=== PATIENT | female | born 1990 | race Two or more races ===

== ENCOUNTER 2020-08-16 15:08 | Inpatient (IN) | payer MEDICAID, OTHER ==
[~2020-08-16] VITALS: Ht 165.1 cm; Wt 133.5 kg
[2020-08-16] MEDS ORDERED: cefTRIAXone 1GM/50ML D5W 50 ML IV ONE (17:30)
[2020-08-16 18:28] LABS: Basophils # (auto) 0.1 10 ^3/uL (0-0.2); Basophils % (auto) 0.9 % (0.0-2.0); Eosinophils # (auto) 0.1 10 ^3/uL (0-0.8); Eosinophils % (auto) 0.8 % (0.0-7.0); Hematocrit 40.8 % (36.0-46.0); Hemoglobin 13.9 g/dL (12.2-16.2); Lymphocytes # (auto) 2.8 10 ^3/uL (0.4-5.4); Lymphocytes % (auto) 28.3 % (10.0-50.0); Mean Corpuscular Hemoglobin 29.1 pg (28.0-32.0); Mean Corpuscular Hgb Conc. 34.1 g/dL (32.0-36.0); Mean Corpuscular Volume 85.5 fL (80.0-100.0); Monocytes # (auto) 0.4 10 ^3/uL (0-1.3); Monocytes % (auto) 4.2 % (0.0-12.0); Neutrophils # (auto) 6.6 10 ^3/uL (1.6-8.6); Neutrophils % (auto) 65.8 % (37.0-80.0); Nucleated Red Blood Cells % 0.6 %; Platelet Count (auto) 318 10^3/uL (140-450); Red Blood Cells 4.77 10^6/uL (4.0-5.20); Red Cell Distribution Width 14.5 % (11.8-14.3)
[2020-08-16 18:41] LABS: Potassium 3.9 mmol/L (3.5-5.1)
[2020-08-16 18:43] LABS: INR 1.03 (0.9-1.15); Partial Thromboplastin Time 29.9 sec (23.0-31.2)
[2020-08-16 18:47] LABS: Albumin 4.1 g/dL (3.4-5.0); BUN/Creatinine Ratio 15.3; Bilirubin, Total 0.6 mg/dL (0.2-1.0); Total Protein 8.2 g/dL (6.4-8.2)
[2020-08-16] MEDS ORDERED: NITROGLYCERIN 0.4 MG SL TAB SL PRN (19:30)
[2020-08-16] MEDS ORDERED: METOCLOPRAMIDE HCL 5MG/ml INJ 2ml VIAL IV PRN (19:30)
[2020-08-16] MEDS ORDERED: ALUM & MAG HYDROX-SIMETH LIQ(MAALOX) 30 ML PO PRN (19:30)
[2020-08-16] MEDS ORDERED: DOCUSATE SOD 100 MG CAP PO PRN (19:30)
[2020-08-16] MEDS ORDERED: ACETAMINOPHEN 325 MG TAB PO PRN (19:30)
[2020-08-16] MEDS ORDERED: MORPHINE SULF INJ 2 MG/ML SYRINGE 1ML IV PRN ×2 (19:30)
[2020-08-16] MEDS: D5W/SOD CHL 0.45% 1,000 ML IV SCH (23:15)
[2020-08-16 23:23] LABS: Urine Bacteria MOD /hpf (None Seen); Urine Blood Negative /uL (Negative); Urine Mucus FEW (None Seen); Urine WBC 12 /hpf (0 - 5)
[2020-08-16 23:30] LABS: Amphetamine Screen, Urine NEGATIVE (NEGATIVE); Barbiturate Scree,Urine NEGATIVE (NEGATIVE); Benzodiazephine Screen, Urine NEGATIVE (NEGATIVE); Cannabinoid Screen, Urine NEGATIVE (NEGATIVE); Cocaine Screen, Urine NEGATIVE (NEGATIVE); Opiate Scree,Urine NEGATIVE (NEGATIVE); Phencyclidine Screen, Urine NEGATIVE (NEGATIVE)
[2020-08-17 09:00] VITALS: BP 106/87
[2020-08-17 09:03] VITALS: BP 106/87
[2020-08-17] MEDS: D5W/SOD CHL 0.45% 1,000 ML IV SCH (10:07)
[2020-08-17 13:00] VITALS: BP_SYST 100; BP_SYST 154; BP_DIAS 55; BP_DIAS 91
[2020-08-17 15:40] LABS: Basophils # (auto) 0.1 10 ^3/uL (0-0.2); Eosinophils # (auto) 0.1 10 ^3/uL (0-0.8); Eosinophils % (auto) 1.2 % (0.0-7.0); Hematocrit 39.3 % (36.0-46.0); Hemoglobin 13.4 g/dL (12.2-16.2); Lymphocytes # (auto) 1.9 10 ^3/uL (0.4-5.4); Mean Corpuscular Hemoglobin 29.4 pg (28.0-32.0); Mean Corpuscular Volume 86.5 fL (80.0-100.0); Monocytes # (auto) 0.4 10 ^3/uL (0-1.3); Neutrophils # (auto) 3.8 10 ^3/uL (1.6-8.6); Neutrophils % (auto) 60.8 % (37.0-80.0); Nucleated Red Blood Cells % 0.1 %; Platelet Count (auto) 267 10^3/uL (140-450); Red Blood Cells 4.55 10^6/uL (4.0-5.20); Red Cell Distribution Width 14.5 % (11.8-14.3); White Blood Cell 6.2 10^3/uL (4.4-10.8)
[2020-08-17 15:54] LABS: INR 1.06 (0.9-1.15); Partial Thromboplastin Time 28.8 sec (23.0-31.2)
[2020-08-17 16:00] LABS: Albumin 3.7 g/dL (3.4-5.0); Calcium 8.7 mg/dL (8.5-10.1); Potassium 4.1 mmol/L (3.5-5.1)
[2020-08-17 16:03] LABS: BUN/Creatinine Ratio 13.3; Bilirubin, Total 0.7 mg/dL (0.2-1.0); Total Protein 7.7 g/dL (6.4-8.2)
[2020-08-17 17:00] VITALS: BP 118/73
[2020-08-17] MEDS: HYDROcodone-ACET 5/325MG TAB PO PRN (20:07)
[2020-08-17 22:00] VITALS: BP 127/88
[2020-08-18 05:00] VITALS: BP 117/72
[2020-08-18] MEDS: D5W/SOD CHL 0.45% 1,000 ML IV SCH (05:30)
[2020-08-18 08:00] VITALS: BP 117/65
[2020-08-18] MEDS ORDERED: ROPIVACAINE 0.5% (5MG/ML) 20ML AMPULE IJ ONE (09:16)
[2020-08-18] MEDS ORDERED: NEOMYCIN-BACITRACIN-POLYM 15GM TOP OINT TOP ONE (09:19)
[2020-08-18] MEDS: BUPIVACAINE 0.5% P/F INJ 10 ML VIAL ONE ×2 (09:25→11:30)
[2020-08-18] MEDS ORDERED: fentaNYL CITRATE 100 MCG/2 ML VL ONE (10:27)
[2020-08-18] MEDS ORDERED: ceFAZolin 1GM/50ML 100 ML IV ONE (10:28)
[2020-08-18] MEDS ORDERED: MIDAZOLAM HCL 1MG/1ML-2 ML VIAL ONE ×3 (10:28→11:03)
[2020-08-18] MEDS ORDERED: PROPOFOL 10 MG/ML 20 ML IV ONE (10:28)
[2020-08-18] MEDS ORDERED: ONDANSETRON HCL 4 MG/2 ML VIAL ONE (10:28)
[2020-08-18] MEDS ORDERED: SODIUM CHLORIDE LOCK 10 ML ONE (10:28)
[2020-08-18] MEDS ORDERED: SODIUM CHLORIDE LOCK 20 ML ONE (11:31)
[2020-08-18 12:00] VITALS: BP 112/70
[2020-08-18] MEDS ORDERED: METOCLOPRAMIDE HCL 5MG/ml INJ 2ml VIAL IV PRN (12:15)
[2020-08-18] MEDS ORDERED: KETOROLAC TROMETH 30 MG/ML 1ML VIAL IV ONE (12:15)
[2020-08-18] MEDS ORDERED: HYDROmorphone HCL 2 MG/ML VL IV PRN (12:15)
[2020-08-18] MEDS ORDERED: MORPHINE SULFATE 4 MG/ML SYR/VIAL IV PRN (12:15)
[2020-08-18] MEDS: HYDROcodone-ACET 5/325MG TAB PO PRN (14:57)
[2020-08-18] MEDS ORDERED: FAMO20TA10 PO (16:57)
[2020-08-18] MEDS ORDERED: ASPI-231 PO (16:57)
[2020-08-18] MEDS ORDERED: IBUP800T26 PO (16:57)
[2020-08-18] MEDS ORDERED: DOXY-332 PO (16:57)
[2020-08-18 17:00] VITALS: BP 130/86
[2020-08-18 17:20] VITALS: BP 112/78
== END 2020-08-18 18:10 | disposition home or self-care (01) | DRG 384 ==
LOC: ER 15:08 → OVERFLOW 15:09 → EAST 08-17 09:13
PROVIDERS: ADMIT Hospitalist; ATTEND Hospitalist
PROC: 0JCQ0ZZ Extirpation of Matter from Right Foot Subcutaneous Tissue and Fascia, Open Approach (ICD-10-PCS; principal; 2020-08-18 10:43)
DX: S90.851A Superficial foreign body, right foot, initial encounter (principal); E66.01 Morbid (severe) obesity due to excess calories; Z68.42 Body mass index [BMI] 45.0-49.9, adult; W45.8XXA Other foreign body or object entering through skin, initial encounter; Y93.01 Activity, walking, marching and hiking; Y92.9 Unspecified place or not applicable; Y99.9 Unspecified external cause status; Z20.822 Contact with and (suspected) exposure to COVID-19
CPT/HCPCS: 36415; 71045; 73620; 80053; 80307; 81001; 84702; 85025; 85610; 85730; 86850; 86900; 86901; 87086; 87426; 97163; G0378; J0690; J0696; J2250; J2405; J2704; J3490

== ENCOUNTER 2020-08-26 13:53 | Emergency (ER) | payer MEDICAID ==
[~2020-08-26] VITALS: Ht 162.6 cm; Wt 127.0 kg
[~2020-08-26 13:53] MED LIST: ASPI-231 PO; DOXY-332 PO; FAMO20TA10 PO; IBUP800T26 PO
[2020-08-26 13:55] VITALS: BP 147/81
== END 2020-08-26 15:28 | disposition home or self-care (01) ==
LOC: ER 13:53
DX: M79.671 Pain in right foot (principal); Z48.01 Encounter for change or removal of surgical wound dressing

== ENCOUNTER 2021-03-30 07:18 | Emergency (ER) | payer MEDICAID ==
[~2021-03-30] VITALS: Ht 162.6 cm; Wt 129.7 kg
[2021-03-30 08:23] VITALS: BP 130/82
[2021-03-30 08:44] LABS: Urine Bacteria NONE SEEN /hpf (None Seen); Urine Blood Negative /uL (Negative); Urine Mucus FEW (None Seen); Urine Specific Gravity 1.015 (1.001-1.035); Urine WBC 2 /hpf (0 - 5)
[2021-03-30] MEDS ORDERED: SODIUM CHLORIDE 0.9% 1,000 ML IV ONE (08:45)
[2021-03-30] MEDS ORDERED: KETOROLAC TROMETH 30 MG/ML 1ML VIAL IV ONE (08:45)
[2021-03-30] MEDS ORDERED: ONDANSETRON HCL 4 MG/2 ML VIAL IV ONE (08:45)
[2021-03-30 09:02] LABS: Basophils # (auto) 0.1 10 ^3/uL (0-0.2); Basophils % (auto) 1.5 % (0.0-2.0); Eosinophils # (auto) 0.1 10 ^3/uL (0-0.8); Eosinophils % (auto) 1.5 % (0.0-7.0); Hematocrit 41.4 % (36.0-46.0); Hemoglobin 13.9 g/dL (12.2-16.2); Lymphocytes # (auto) 1.9 10 ^3/uL (0.4-5.4); Lymphocytes % (auto) 31.7 % (10.0-50.0); Mean Corpuscular Hemoglobin 29.3 pg (28.0-32.0); Mean Corpuscular Hgb Conc. 33.5 g/dL (32.0-36.0); Mean Corpuscular Volume 87.5 fL (80.0-100.0); Monocytes # (auto) 0.3 10 ^3/uL (0-1.3); Monocytes % (auto) 5.7 % (0.0-12.0); Neutrophils # (auto) 3.5 10 ^3/uL (1.6-8.6); Neutrophils % (auto) 59.6 % (37.0-80.0); Nucleated Red Blood Cells % 0.1 %; Red Blood Cells 4.73 10^6/uL (4.0-5.20); Red Cell Distribution Width 14.2 % (11.8-14.3); White Blood Cell 5.8 10^3/uL (4.4-10.8)
[2021-03-30 09:13] LABS: Albumin 3.8 g/dL (3.4-5.0); Calcium 9.1 mg/dL (8.5-10.1); Potassium 3.9 mmol/L (3.5-5.1)
[2021-03-30 09:18] LABS: BUN/Creatinine Ratio 13.8; Bilirubin, Total 0.5 mg/dL (0.2-1.0); Total Protein 7.2 g/dL (6.4-8.2)
== END 2021-03-30 10:17 | disposition home or self-care (01) ==
LOC: ER 07:18
DX: N20.0 Calculus of kidney (principal); K57.30 Diverticulosis of large intestine without perforation or abscess without bleeding
CPT/HCPCS: 36415; 74176; 80053; 81001; 83690; 85025; 96361; 96374; 96375; 99284; J1885; J2405; J7030

== ENCOUNTER 2021-04-02 22:46 | Emergency (ER) | payer MEDICAID ==
[~2021-04-02] VITALS: Ht 165.1 cm; Wt 129.7 kg
[~2021-04-02 22:46] MED LIST changes: -ASPI-231 PO; +ASPI1TAB20 PO
[2021-04-03 02:41] VITALS: BP 126/81
[2021-04-03] MEDS ORDERED: methylPREDNISolone SOD SUCC 125 MG/2 ML VL IM ONE (04:00)
[2021-04-03] MEDS ORDERED: KETOROLAC TROMETH 60MG/2ML VIAL IM ONE (04:00)
== END 2021-04-03 04:24 | disposition home or self-care (01) ==
LOC: ER 22:47
DX: N20.0 Calculus of kidney (principal); R11.0 Nausea; E66.01 Morbid (severe) obesity due to excess calories; Z68.42 Body mass index [BMI] 45.0-49.9, adult; Z79.82 Long term (current) use of aspirin; Z79.2 Long term (current) use of antibiotics; Z79.899 Other long term (current) drug therapy
CPT/HCPCS: 96372; 99284; J1885; J2930

== ENCOUNTER 2021-06-19 20:00 | Emergency (ER) | payer MEDICAID ==
[~2021-06-19] VITALS: Ht 162.6 cm; Wt 127.9 kg
[2021-06-19 21:37] LABS: Basophils # (auto) 0.1 10 ^3/uL (0-0.2); Basophils % (auto) 1.7 % (0.0-2.0); Eosinophils # (auto) 0.1 10 ^3/uL (0-0.8); Eosinophils % (auto) 1.3 % (0.0-7.0); Hematocrit 39.8 % (36.0-46.0); Hemoglobin 13.6 g/dL (12.2-16.2); Lymphocytes % (auto) 37.8 % (10.0-50.0); Mean Corpuscular Hemoglobin 29.1 pg (28.0-32.0); Mean Corpuscular Hgb Conc. 34.3 g/dL (32.0-36.0); Mean Corpuscular Volume 84.9 fL (80.0-100.0); Monocytes # (auto) 0.4 10 ^3/uL (0-1.3); Monocytes % (auto) 4.8 % (0.0-12.0); Neutrophils # (auto) 4.4 10 ^3/uL (1.6-8.6); Neutrophils % (auto) 54.4 % (37.0-80.0); Nucleated Red Blood Cells % 0.2 %; Red Blood Cells 4.68 10^6/uL (4.0-5.20); Red Cell Distribution Width 13.5 % (11.8-14.3); White Blood Cell 8.1 10^3/uL (4.4-10.8)
[2021-06-19 21:54] LABS: Albumin 3.9 g/dL (3.4-5.0); Calcium 8.8 mg/dL (8.5-10.1); Potassium 3.7 mmol/L (3.5-5.1)
[2021-06-19 21:57] LABS: BUN/Creatinine Ratio 12.5; Bilirubin, Total 0.5 mg/dL (0.2-1.0); Total Protein 7.6 g/dL (6.4-8.2)
[2021-06-19 22:52] LABS: Urine Bacteria FEW /hpf (None Seen); Urine Blood 3+ /uL (Negative); Urine Mucus FEW (None Seen); Urine Specific Gravity 1.015 (1.001-1.035); Urine WBC 9 /hpf (0 - 5)
[2021-06-20] MEDS ORDERED: MORPHINE SULFATE 4 MG/ML SYR/VIAL IV ONE (01:15)
[2021-06-20] MEDS ORDERED: HYDROcodone-ACET 5/325MG TAB PO ONE (02:30)
[2021-06-20 03:37] VITALS: BP 132/85
== END 2021-06-20 03:49 | disposition home or self-care (01) ==
LOC: ER 20:01
DX: R10.31 Right lower quadrant pain (principal); R11.2 Nausea with vomiting, unspecified; Z98.890 Other specified postprocedural states; Z79.899 Other long term (current) drug therapy; Z79.82 Long term (current) use of aspirin
CPT/HCPCS: 36415; 74176; 76830; 76856; 80053; 81001; 81025; 83605; 83690; 85025

== ENCOUNTER 2021-12-10 08:39 | Emergency (ER) | payer MEDICAID ==
[~2021-12-10] VITALS: Ht 162.6 cm; Wt 129.3 kg
[2021-12-10 08:39] VITALS: BP 139/87
[2021-12-10 09:22] LABS: Urine Bacteria NONE SEEN /hpf (None Seen); Urine Blood Negative /uL (Negative); Urine Specific Gravity 1.016 (1.001-1.035); Urine WBC 21 /hpf (0 - 5)
[2021-12-10 11:33] LABS: Basophils # (auto) 0.1 10 ^3/uL (0-0.2); Basophils % (auto) 1.3 % (0.0-2.0); Eosinophils # (auto) 0.1 10 ^3/uL (0-0.8); Eosinophils % (auto) 1.3 % (0.0-7.0); Hematocrit 38.7 % (36.0-46.0); Hemoglobin 13.4 g/dL (12.2-16.2); Lymphocytes % (auto) 28.3 % (10.0-50.0); Mean Corpuscular Hemoglobin 29.3 pg (28.0-32.0); Mean Corpuscular Hgb Conc. 34.7 g/dL (32.0-36.0); Mean Corpuscular Volume 84.4 fL (80.0-100.0); Monocytes # (auto) 0.3 10 ^3/uL (0-1.3); Monocytes % (auto) 4.5 % (0.0-12.0); Neutrophils # (auto) 4.6 10 ^3/uL (1.6-8.6); Neutrophils % (auto) 64.6 % (37.0-80.0); Nucleated Red Blood Cells % 0.5 %; Red Blood Cells 4.58 10^6/uL (4.0-5.20); Red Cell Distribution Width 14.3 % (11.8-14.3); White Blood Cell 7.1 10^3/uL (4.4-10.8)
[2021-12-10 11:44] LABS: INR 1.05 (0.9-1.15); Partial Thromboplastin Time 29.2 sec (23.6-33.0)
[2021-12-10] MEDS ORDERED: HALOPERIDOL LACTATE 5 MG/ML INJ VIAL IV PRN (13:15)
[2021-12-10 13:17] LABS: Albumin 3.7 g/dL (3.4-5.0); Calcium 8.8 mg/dL (8.5-10.1); Potassium 3.8 mmol/L (3.5-5.1)
[2021-12-10 13:20] LABS: Bilirubin, Total 0.6 mg/dL (0.2-1.0); Total Protein 7.8 g/dL (6.4-8.2)
[2021-12-10] MEDS ORDERED: IOHEXOL 300 MG/ML 100ML BOTTLE IJ ONE (14:30)
[2021-12-10] MEDS ORDERED: cefTRIAXone 1GM/50ML D5W 50 ML IV ONE (16:30)
[2021-12-10] MEDS ORDERED: ACET-1156 PO (16:50)
[2021-12-10] MEDS ORDERED: CEPH-509 PO (16:50)
== END 2021-12-10 17:16 | disposition home or self-care (01) ==
LOC: ER 08:39
DX: N39.0 Urinary tract infection, site not specified (principal); Z79.82 Long term (current) use of aspirin; Z79.899 Other long term (current) drug therapy
CPT/HCPCS: 36415; 74177; 80053; 81001; 81025; 83605; 84702; 85025; 85610; 85730; 87086; 96365; 99285; J0696; Q9967

== ENCOUNTER 2022-03-07 08:16 | Emergency (ER) | payer MEDICAID ==
[~2022-03-07] VITALS: Ht 162.6 cm; Wt 128.8 kg
[~2022-03-07 08:16] MED LIST changes: +ACET-1156 PO; +CEPH-509 PO
[2022-03-07] MEDS ORDERED: IBUP800T27 PO (11:22)
[2022-03-07] MEDS ORDERED: CEPH-510 PO (11:22)
[2022-03-07 11:31] VITALS: BP 151/99
== END 2022-03-07 11:39 | disposition home or self-care (01) ==
LOC: ER 08:16
DX: N76.4 Abscess of vulva (principal); Z79.1 Long term (current) use of non-steroidal anti-inflammatories (NSAID); Z79.82 Long term (current) use of aspirin; Z79.2 Long term (current) use of antibiotics; Z79.899 Other long term (current) drug therapy

== ENCOUNTER 2022-03-08 08:37 | Emergency (ER) | payer MEDICAID ==
[~2022-03-08] VITALS: Ht 165.1 cm; Wt 90.7 kg
[~2022-03-08 08:37] MED LIST changes: +CEPH-510 PO; +IBUP800T27 PO
[2022-03-08 09:51] VITALS: BP 115/76
[2022-03-08] MEDS ORDERED: LIDOCAINE 1% HCL (LOCAL ANESTH.) INJ 20ML MDV IJ ONE (10:00)
== END 2022-03-08 10:19 | disposition home or self-care (01) ==
LOC: ER 08:37
DX: N76.0 Acute vaginitis (principal)
CPT/HCPCS: 56420; 99284; J2001

== ENCOUNTER 2022-07-09 13:44 | Inpatient (IN) | payer MEDICAID ==
[~2022-07-09] VITALS: Ht 162.6 cm; Wt 126.0 kg
[2022-07-09 13:55] VITALS: BP 128/82
[2022-07-09 14:18] LABS: Basophils # (auto) 0.1 10 ^3/uL (0-0.2); Basophils % (auto) 0.8 % (0.0-2.0); Eosinophils # (auto) 0 10 ^3/uL (0-0.8); Eosinophils % (auto) 0.2 % (0.0-7.0); Hematocrit 40.9 % (36.0-46.0); Hemoglobin 13.8 g/dL (12.2-16.2); Lymphocytes # (auto) 0.9 10 ^3/uL (0.4-5.4); Lymphocytes % (auto) 7.6 % (10.0-50.0); Mean Corpuscular Hemoglobin 28.7 pg (28.0-32.0); Mean Corpuscular Hgb Conc. 33.9 g/dL (32.0-36.0); Mean Corpuscular Volume 84.9 fL (80.0-100.0); Monocytes # (auto) 0.4 10 ^3/uL (0-1.3); Monocytes % (auto) 3.5 % (0.0-12.0); Neutrophils # (auto) 10.5 10 ^3/uL (1.6-8.6); Neutrophils % (auto) 87.9 % (37.0-80.0); Nucleated Red Blood Cells % 0.1 %; Red Blood Cells 4.81 10^6/uL (4.0-5.20); Red Cell Distribution Width 14.3 % (11.8-14.3)
[2022-07-09 14:26] LABS: Albumin 4.2 g/dL (3.4-5.0); Calcium 8.9 mg/dL (8.5-10.1); Potassium 3.8 mmol/L (3.5-5.1)
[2022-07-09 14:29] LABS: BUN/Creatinine Ratio 10.6; Bilirubin, Total 0.8 mg/dL (0.2-1.0); Total Protein 7.6 g/dL (6.4-8.2)
[2022-07-09] MEDS ORDERED: SODIUM CHLORIDE 0.9% 1,000 ML IV ONE (15:30)
[2022-07-09] MEDS ORDERED: ACETAMINOPHEN 325 MG TAB PO ONE (15:30)
[2022-07-09] MEDS ORDERED: LIDOCAINE VISCOUS 2% 15ML UD PO ONE (16:45)
[2022-07-09] MEDS ORDERED: ONDANSETRON HCL 4 MG/2 ML VIAL IV ONE (16:45)
[2022-07-09] MEDS ORDERED: FAMOTIDINE (10MG/ML) 2ML VL IV ONE (16:45)
[2022-07-09] MEDS ORDERED: MAALOX PLUS or MAALOX 30 ML PO ONE (16:45)
[2022-07-09 17:29] LABS: Urine Bacteria FEW /hpf (None Seen); Urine Blood Negative /uL (Negative); Urine Mucus FEW (None Seen); Urine Specific Gravity 1.021 (1.001-1.035); Urine WBC 9 /hpf (0 - 5)
[2022-07-09] MEDS ORDERED: cefTRIAXone 1GM/50ML D5W 50 ML IV ONE (18:00)
[2022-07-09] MEDS ORDERED: metroNIDAZOLE 500MG/100ML 100 ML IV ONE (18:00)
[2022-07-09] MEDS ORDERED: ACETAMINOPHEN 325 MG TAB PO PRN (18:30)
[2022-07-09] MEDS ORDERED: SODIUM CHLORIDE 0.9% 1,000 ML IV SCH (18:30)
[2022-07-09] MEDS ORDERED: TEMAZEPAM 15 MG CAP PO PRN (18:30)
[2022-07-09] MEDS ORDERED: LORazepam 0.5 MG TAB PO PRN (18:30)
[2022-07-09] MEDS ORDERED: MAALOX PLUS or MAALOX 30 ML PO PRN (18:30)
[2022-07-09] MEDS ORDERED: HYDROmorphone HCL 2 MG/ML VL/or syr IV PRN (18:30)
[2022-07-09] MEDS ORDERED: MORPHINE SULFATE INJ 2 MG/ml SYRG IV PRN ×2 (18:30)
[2022-07-09] MEDS ORDERED: NITROGLYCERIN 0.4 MG SL TAB SL PRN (18:30)
[2022-07-09] MEDS ORDERED: ONDANSETRON HCL 4 MG/2 ML VIAL IV PRN (18:30)
[2022-07-09] MEDS ORDERED: DOCUSATE SOD 100 MG CAP PO PRN (18:30)
[2022-07-09] MEDS ORDERED: HYDROcodone-ACET 5/325MG TAB PO PRN (18:30)
[2022-07-10] MEDS ORDERED: cefTRIAXone 1GM/50ML D5W 50 ML IV SCH (10:00)
[2022-07-10] MEDS ORDERED: PANTOPRAZOLE 40 MG TAB PO SCH (10:00)
[2022-07-10] MEDS ORDERED: metroNIDAZOLE 500MG/100ML 100 ML IV SCH (18:57)
== END 2022-07-09 21:37 | disposition left against medical advice (07) | DRG 463 ==
LOC: ER 13:44 → OVERFLOW 18:48
PROVIDERS: ADMIT Hospitalist; ATTEND Hospitalist
DX: N39.0 Urinary tract infection, site not specified (principal); E66.01 Morbid (severe) obesity due to excess calories; R11.2 Nausea with vomiting, unspecified; Z98.891 History of uterine scar from previous surgery; Z53.29 Procedure and treatment not carried out because of patient's decision for other reasons; Z68.42 Body mass index [BMI] 45.0-49.9, adult
CPT/HCPCS: 36415; 71045; 76705; 80053; 81001; 81025; 83690; 83735; 83880; 84484; 84702; 85025; 85379; 93005; 96361; 96374; 96375; G0378; J2405; J3490

== ENCOUNTER 2024-06-24 17:23 | Emergency (ER) | payer MEDICAID ==
[~2024-06-24] VITALS: Ht 165.1 cm; Wt 135.0 kg
[~2024-06-24 17:23] MED LIST changes: -ACET-1156 PO; +ACET-1881 PO; -DOXY-332 PO; +DOXY100C79 PO; +IBUP-1455 PO; +IBUP-1456 PO; -IBUP800T26 PO; -IBUP800T27 PO
[2024-06-24 17:50] LABS: Basophils # (auto) 0.1 10 ^3/uL (0-0.2); Basophils % (auto) 1.1 % (0.0-2.0); Eosinophils # (auto) 0.1 10 ^3/uL (0-0.8); Eosinophils % (auto) 1.2 % (0.0-7.0); Hematocrit 43.7 % (36.0-46.0); Hemoglobin 14.7 g/dL (12.2-16.2); Lymphocytes # (auto) 3.7 10 ^3/uL (0.4-5.4); Mean Corpuscular Hemoglobin 29.5 pg (28.0-32.0); Mean Corpuscular Hgb Conc. 33.6 g/dL (32.0-36.0); Mean Corpuscular Volume 87.8 fL (80.0-100.0); Monocytes # (auto) 0.5 10 ^3/uL (0-1.3); Monocytes % (auto) 4.6 % (0.0-12.0); Neutrophils # (auto) 5.6 10 ^3/uL (1.6-8.6); Neutrophils % (auto) 56.1 % (37.0-80.0); Nucleated Red Blood Cells % 0.2 %; Platelet Count (auto) 324 10^3/uL (140-450); Red Blood Cells 4.98 10^6/uL (4.0-5.20); Red Cell Distribution Width 14.6 % (11.8-14.3); White Blood Cell 9.9 10^3/uL (4.4-10.8)
--- NOTE | 2024-06-24 17:57 | ED.PDOC ---
HPI Comments 33y F who presents to the ED for chief complaint of chest pain. Pt states she has been having chest pain for the past 30 minutes. Pt states she has been having sternal chest pain while walking. non-radiating, with associated exacerbating of pain with movement and palpation. no injuries of lifting. Pt otherwise denies shortness of breath, diaphoresis, palliations, fever, cough, chills, headache, or dizziness. Pt otherwise has noted temp of 165/94 with 02 sat of 100 % on room air. Pt otherwise denies any other symptoms at this time. Chief Complaint: Chest Pain Time Seen by MD: 17:48 Primary Care Provider: [facility] Notes: Nurses Notes Allergies: Coded Allergies: No Known Drug Allergy (Verified Allergy, Unknown, 08/16/20) Home Meds Active Scripts Ibuprofen (Ibuprofen) 800 Mg Tab, 1 TAB PO TID, #30 TAB Prov:ELKE RODRIGUEZ 03/07/22 Cephalexin ( Keflex 500) 500 Mg Cap, 1 CAP PO QID, #40 CAP Prov:ELKE RODRIGUEZ 03/07/22 Cephalexin (KEFLEX 500) 500 Mg Cap, 1 CAP PO BID for 7 Days, #14 CAP Prov:ANIL VARELA MD 12/10/21 Acetaminophen (Acetaminophen) 325 Mg Tab, 650 MG PO Q6H PRN for 5 Days, #30 TAB 0 Refills Prov:ANIL VARELA MD 12/10/21 Doxycycline (Monohydrate) (Doxycycline) 100 Mg Cap, 100 MG PO BID, #10 CAP Prov:YANCY FAYE MD 08/18/20 Aspirin (Aspir-81) 81 Mg Tab, 1 TAB PO DAILY, #14 TAB Prov:YANCY FAYE MD 08/18/20 Famotidine (PEPCID TABLET) 20 Mg Tb, 1 TAB PO DAILY, #20 TAB Prov:YANCY FAYE MD 08/18/20 Ibuprofen Micronized (Ibuprofen) 800 Mg Tab, 800 MG PO TIDWM PRN, #20 TAB Prov:YANCY FAYE MD 08/18/20 Information Source: Patient Mode of Arrival: Ambulatory Brought in by: self Past Medical History PAST MEDICAL HISTORY: Denies 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 DRYWALL TAPER HELPER History Family History Family History: Reviewed,noncontributory to illness Social History Smoker: Non-Smoker Alcohol: Occasionally Drugs: Marijuana Lives In: Home Constitutional: denies: chills, diaphoresis, fatigue, fever, malaise, sweats, weakness, others EENTM: denies: blurred vision, double vision, ear bleeding, ear discharge, ear drainage, ear pain, ear ringing, eye pain, eye redness, hearing loss, mouth pain, mouth swelling, nasal discharge, nose bleeding, nose congestion, nose pain, photophobia, tearing, throat pain, throat swelling, voice changes, others Respiratory: denies: cough, hemoptysis, orthopnea, SOB at rest, shortness of breath, SOB with excertion, stridor, wheezing, others Cardiovascular: reports: chest pain; denies: dizzy spells, diaphoresis, Dyspnea on exertion, edema, irregular heart beat, left arm pain, lightheadedness, palpitations, PND, syncope, others Gastrointestinal: denies: abdomen distended, abdominal pain, blood streaked bowels, constipated, diarrhea, dysphagia, difficulty swallowing, hematemesis, melena, nausea, poor appetite, poor fluid intake, rectal bleeding, rectal pain, vomiting, others Genitourinary: denies: abnormal vagina bleeding, burning, dyspareunia, dysuria, flank pain, frequency, hematuria, incontinence, pain, , vagina dis charge, urgency, others Neurological: denies: dizziness, fainting, headache, left sided numbness, left sided weakness, numbness, paresthesia, pre-existing deficit, right sided numbness, right sided weakness, seizure, speech problems, tingling, tremors, weakness, others Musculoskeletal: denies: back pain, gout, joint pain, joint swelling, muscle pain, muscle stiffness, neck pain, others Integumetry: denies: bruises, change in color, change in hair/nails, dryness, laceration, lesions, lumps, rash, wounds, others Allergic/Immunocompromised: denies: Difficulty Healing, Frequent Infections, Hives, Itching, others Hematologic/Lymphatic: denies: anemia, blood clots, easy bleeding, easy bruising, swollen glands, others Endocrine: denies: excessive hunger, excessive sweating, excessive thirst, excessive urination, flushing, intolerance to cold, intolerance to heat, unexplained weight gain, unexplained weight loss, others Psychiatric: denies: anxiety, bipolar disorder, depression, hopeless, panic disorder, schizophrenia, sleepless, suicidal, others All Other Systems: Reviewed and Negative Physical Exam General Appearance: No Apparent Distress, Normal HEENT: Normal ENT Inspection, Pharynx Normal, TMs Normal Neck: Full Range of Motion, Non-Tender, Normal, Normal Inspection Respiratory: Chest Non-Tender, Lungs Clear, No Accessory Muscle Use, No Respiratory Distress, Normal Breath Sounds Cardiovascular: Other (midsternal chest pain) Breast Exam: Deferred Gastrointestinal: No Organomegaly, Non Tender, No Pulsatile Mass, Normal Bowel Sounds, Soft Genitalia: Deferred Pelvic: Deferred Rectal: Deferred Extremities: No calf tenderness, Normal capillary refill, Normal inspection, Normal range of motion, Non-tender, No pedal edema Musculoskeletal : Apperance: Normal Neurologic: Alert, lehr loader II-XII nml as Tested, No Motor Deficits, Normal Affect, Normal Mood, No Sensory Deficits Cerebellar Function: Normal Reflexes: Normal Skin: Dry, Normal Color, Warm Lymphatic: No Adenopathy Was a procedure done? Was a procedure done?: No CP Differential Dx Differential Diagnosis: A-fib, A-Flutter, Angina Differential Diagnosis: Chest Wall Pain, Costochondritis X-Ray, Labs, Meds, VS Vital Signs Date Time Temp Pulse Resp B/P (MAP) Pulse Ox O2 Delivery O2 Flow Rate FiO2 06/24/24 18:31 18 100 Room Air* 0 21 06/24/24 18:21 94 06/24/24 18:06 106 06/24/24 18:06 106 18 125/72 (89) 98 06/24/24 17:43 105 06/24/24 17:39 98.1 97 18 165/94 (117) 100 Lab Test 06/24/24 17:35 Range/Units White Blood Count 9.9 4.4-10.8 10^3/uL Red Blood Count 4.98 4.0-5.20 10^6/uL Hemoglobin 14.7 12.2-16.2 g/dL Hematocrit 43.7 36.0-46.0 % Mean Corpuscular Volume 87.8 80.0-100.0 fL Mean Corpuscular Hemoglobin 29.5 28.0-32.0 pg Mean Corpuscular Hemoglobin Concent 33.6 32.0-36.0 g/dL Red Cell Distribution Width 14.6 H 11.8-14.3 % Platelet Count 324 140-450 10^3/uL Mean Platelet Volume 8.5 6.9-10.8 fL Neutrophils (%) (Auto) 56.1 37.0-80.0 % Lymphocytes (%) (Auto) 37.0 10.0-50.0 % Monocytes (%) (Auto) 4.6 0.0-12.0 % Eosinophils (%) (Auto) 1.2 0.0-7.0 % Basophils (%) (Auto) 1.1 0.0-2.0 % Neutrophils # (Auto) 5.6 1.6-8.6 10 ^3/uL Lymphocytes # (Auto) 3.7 0.4-5.4 10 ^3/uL Monocytes # (Auto) 0.5 0-1.3 10 ^3/uL Eosinophils # (Auto) 0.1 0-0.8 10 ^3/uL Basophils # (Auto) 0.1 0-0.2 10 ^3/uL Nucleated Red Blood Cells 0.2 % Sodium Level 140 136-145 mmol/L Potassium Level 4.2 3.5-5.1 mmol/L Chloride Level 105 98-107 mmol/L Carbon Dioxide Level 26 20-31 mmol/L Anion Gap 9 5-15 Blood Urea Nitrogen 10 9-23 mg/dL Creatinine 0.84 0.550-1.02 mg/dL Glomerular Filtration Rate Calc 95 >90 mL/min BUN/Creatinine Ratio 11.9 10.0-20.0 Serum Glucose 96 74-106 mg/dL Calcium Level 10.2 8.7-10.4 mg/dL Total Bilirubin 0.6 0.2-1.0 mg/dL Aspartate Amino Transferase (AST) 21 13-40 U/L Alanine Aminotransferase (ALT) 23 7-40 U/L Alkaline Phosphatase 65 46-116 U/L Troponin I High Sensitivity < 3 L </=34 ng/L Total Protein 7.7 5.7-8.2 g/dL Albumin 4.7 3.2-4.8 g/dL Beta HCG, Quantitative 1.4 L 1.5-4.2 mIU/mL Current Medications Medications (Trade) Dose Ordered Sig/Zaynab Route Start Time Stop Time Status Last Admin Ketorolac Tromethamine (Toradol Injection) 30 mg ONCE ONCE IM 06/24/24 17:45 06/24/24 17:46 DC 06/24/24 18:[address] [address] Ph: [phone] DIAGNOSTIC IMAGING Diagnostic Imaging Report : [id number] Signed PATIENT: KAVITA GUNTER ACCT: [id number] UNIT: [id number] : 1990 LOC: ER ROOM / BED: / AGE / SEX: 33 / F ADM STATUS: REG ER SERVICE [id number] ORDERING PHYSICIAN: ALLI MOLINA MD PROCEDURE(s): CXRP - CHEST PORTABLE REASON: cp ORDER NUMBER(s): [id number], ACCESSION NUMBER(s): [id number] CHEST RADIOGRAPH Indication: cp Technique: Single frontal view of the chest was obtained Comparison: CHEST PORTABLE on DOS: 07/09/22, CXRP on DOS: 07/09/22 FINDINGS: Lines and Tubes: None Lungs: No focal consolidation. Pleura: No effusion. No pneumothorax. Cardiomediastinal contours: Unremarkable Bones: No acute osseous abnormality. IMPRESSION: No acute cardiopulmonary disease. ATED BY: VALENCIA YOUSIF DO DICTATED DATE/TIME: 06/24/241952 SIGNED BY: VALENCIA YOUSIF DO SIGNED DATE/TIME: 06/24/241952 CC: Time of 1ST Reevaluation: 18:20 Reevaluation 1ST: Unchanged Time of 2ND Reevaluation: 21:23 Reevaluation 2ND: Resolved Patient Education/Counseling: Diagnosis, Treatment Family Education/Counseling: No Family Present Additional Information - I reviewed the following notes from patient's past medical encounters: - The following tests were ordered, and results were reviewed by me: (Labs, X- Ray, EKG): chest x-ray, EKG x3, troponin x1, beta HCG, CBC, CMP, - Additional information was gathered from interviewing the following independent Historian: (Family, Other Providers, EMT): father - I reviewed and agreed with the following test results read by other provider: (X-ray, CT, US): radiologist - I discussed treatments and results with medical personnel and: (consultants, family): none Departure 1 Departure Time of Disposition: 22:09 (Patient presented with chest pain that was concerning for possible STEMI, ACS, PE, Pneumonia, Muscle Strain, COPD, Dissection. Data: 1. I ordered and reviewed the result of at least 3 labs including a CBC, BMP, and Troponin. 2. I independently interpreted the following tests: EKG which shows normal sinus rhythm and Chest X-ray which shows a benign chest.Risk:This patient presented with a high risk of morbidity due to further diagnostic testing or treatment and may suffer from an acute cardiac or respiratory disorder. After review of all the data patient is unlikely to have a pe , dissection, and is low risk for acs. Patient is stable at this time.Workup so far is benign and patient will be discharged with outpatient followup. ) Impression: Primary Impression: Acute chest pain Disposition: HOME / SELF CARE / HOMELESS Condition: Stable Additional Instructions: You presented today with chest pain. Your workup today was benign including labs, troponin, EKG, chest x-ray. Your pain may be from musculoskeletal strain, acid reflux, anxiety, or many other factors. It is important to follow up with your regular doctor within 1 week. If your symptoms worsen or you have any other concerns please return to the emergency room. Discharged With: Self Critical Care Note Critical Care Time?: No Stability Stability form required: No Heart Score Heart Score: Heart Score Response (Comments) Value History Slightly Suspicious 0 EKG Normal 0 Age <45 0 Risk Factors No known risk factors 0 Troponin Normal limit 0 Total 0 I personally scribed for ALLI MOLINA MD ([email or web address]) on 06/24/24 at 17:57. Electronically submitted by Rigoberto Andrews ([email or web address]). I personally scribed for ALLI MOLINA MD ([email or web address]) on 06/24/24 at 20:18. Electronically submitted by Rigoberto Andrews ([email or web address]). ALLI MOLINA MD Jun 24, 2024 17:57 WILLOW MONTEIRO MD Jun 24, 2024 22:10
[2024-06-24] MEDS: KETOROLAC TROMETH 30 MG/ML 1ML VIAL IM ONE (18:05)
[2024-06-24 18:06] VITALS: BP 125/72
[2024-06-24 18:14] LABS: Alanine Aminotransferase 23 U/L (7-40); Albumin 4.7 g/dL (3.2-4.8); Alkaline Phosphatase 65 U/L (46-116); Anion Gap 9 (5-15); Aspartate Aminotransferase 21 U/L (13-40); BUN/Creatinine Ratio 11.9 (10.0-20.0); Blood Urea Nitrogen 10 mg/dL (9-23); Calcium 10.2 mg/dL (8.7-10.4); Carbon Dioxide 26 mmol/L (20-31); Chloride 105 mmol/L (98-107); Glucose 96 mg/dL (74-106); Potassium 4.2 mmol/L (3.5-5.1); Sodium 140 mmol/L (136-145)
[2024-06-24 18:15] LABS: Bilirubin, Total 0.6 mg/dL (0.2-1.0); Total Protein 7.7 g/dL (5.7-8.2)
[2024-06-24 18:21] VITALS: PULSE 94
[2024-06-24 18:31] VITALS: RESP 18; O2SAT 100
--- NOTE | 2024-06-24 19:10 | ECG ---
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
--- NOTE | 2024-06-24 19:56 | DVH ---
CHEST RADIOGRAPH Indication: cp Technique: Single frontal view of the chest was obtained Comparison: CHEST PORTABLE on DOS: 07/09/22, CXRP on DOS: 07/09/22 FINDINGS: Lines and Tubes: None Lungs: No focal consolidation. Pleura: No effusion. No pneumothorax. Cardiomediastinal contours: Unremarkable Bones: No acute osseous abnormality. IMPRESSION: No acute cardiopulmonary disease.
--- NOTE | 2024-06-25 12:49 | ECG ---
[facility] Test Date: 2024-06-24 Test Time: 18:21:23 Pat Name: KAVITA GUNTER Department: ER Room: Gender: F Director Of Digital Technology: REFUGIO : 1990 Requested By: ALLI MOLINA Order Number: [id number] Reading MD: Kendrick Jade Measurements Intervals [place] Rate: 94 P: 61 VT: 130 QRS: 69 QRSD: 85 T: 51 QT: 359 QTc: 449 Interpretive Statements Sinus rhythm Left atrial enlargement Electronically Signed On 06-25-2024 14:20:08 PST by Kendrick Jade Please click the below link to view image of tracing.
== END 2024-06-24 23:30 | disposition home or self-care (01) ==
LOC: ER 17:23
DX: R07.89 Other chest pain (principal); R10.2 Pelvic and perineal pain; F15.90 Other stimulant use, unspecified, uncomplicated; Z98.890 Other specified postprocedural states; Z79.1 Long term (current) use of non-steroidal anti-inflammatories (NSAID); Z79.82 Long term (current) use of aspirin; Z79.899 Other long term (current) drug therapy
CPT/HCPCS: 36415; 71045; 80053; 84484; 84702; 85025; 93005; 96372; 99285; J1885

== ENCOUNTER 2025-04-12 19:05 | Inpatient (IN) | payer MEDICAID ==
[~2025-04-12] VITALS: Ht 165.1 cm; Wt 97.0 kg
[2025-04-12 19:52] LABS: Hematocrit 45.0 % (36.0-46.0); Hemoglobin 15.2 g/dL (12.2-16.2); Mean Corpuscular Hemoglobin 29.7 pg (28.0-32.0); Mean Corpuscular Volume 88.1 fL (80.0-100.0); Nucleated Red Blood Cells % 0.3 %
[2025-04-12 19:59] LABS: Alkaline Phosphatase 72 U/L (46-116); Anion Gap 13 (5-15); BUN/Creatinine Ratio 9.8 (10.0-20.0); Calcium 10.1 mg/dL (8.7-10.4); Carbon Dioxide 25 mmol/L (20-31); Chloride 104 mmol/L (98-107); Glucose 93 mg/dL (74-106); Lipase 49 U/L (12-53); Potassium 4.2 mmol/L (3.5-5.1); Sodium 142 mmol/L (136-145); Total Protein 7.8 g/dL (5.7-8.2)
[2025-04-12 20:04] LABS: Alanine Aminotransferase 43 U/L (7-40); Albumin 4.8 g/dL (3.2-4.8); Bilirubin, Total 1.5 mg/dL (0.2-1.0); Blood Urea Nitrogen 9 mg/dL (9-23)
[2025-04-12 20:45] LABS: Urine Amorphous Crystal FEW /hpf (None Seen); Urine Protein, UAD 1+ (Negative)
--- NOTE | 2025-04-12 20:45 | ED.PDOC ---
History of Present Illness HPI Comments 34 y/o obese F presents with c/c of epigastric abdominal pain for 1x day. Patient reports on pain worsening since initial, unprovoked and atraumatic onset, and it radiating to her back. Denies any nausea, vomiting, diarrhea, constipation, fever, chills, or further associated symptoms. Recent notable history of MRI of her abdomen in March 2025 showing sludge in her gallbladder. Patient states on having a subsequent hiatal scan ordered but never being done prior to today. Chief Complaint: Abdominal Pain Time Seen by MD: 20:00 Primary Care Provider: [facility] Reviewed Notes: Nurses Notes, Medications, Allergies Allergies: Coded Allergies: No Known Drug Allergy (Verified Allergy, Unknown, 08/16/20) Home Meds Active Scripts Ibuprofen (Ibuprofen) 800 Mg Tab, 1 TAB PO TID, #30 TAB Prov:ELKE RODRIGUEZ 03/07/22 Cephalexin ( Keflex 500) 500 Mg Cap, 1 CAP PO QID, #40 CAP Prov:ELKE RODRIGUEZ 03/07/22 Cephalexin (KEFLEX 500) 500 Mg Cap, 1 CAP PO BID for 7 Days, #14 CAP Prov:ANIL VARELA MD 12/10/21 Acetaminophen (Acetaminophen) 325 Mg Tab, 650 MG PO Q6H PRN for 5 Days, #30 TAB 0 Refills Prov:ANIL VARELA MD 12/10/21 Doxycycline (Monohydrate) (Doxycycline) 100 Mg Cap, 100 MG PO BID, #10 CAP Prov:YANCY FAYE MD 08/18/20 Aspirin (Aspir-81) 81 Mg Tab, 1 TAB PO DAILY, #14 TAB Prov:YANCY FAYE MD 08/18/20 Famotidine (PEPCID TABLET) 20 Mg Tb, 1 TAB PO DAILY, #20 TAB Prov:YANCY FAYE MD 08/18/20 Ibuprofen Micronized (Ibuprofen) 800 Mg Tab, 800 MG PO TIDWM PRN, #20 TAB Prov:YANCY FAYE MD 08/18/20 Information Source: Patient Mode of Arrival: Ambulatory Severity: Moderate Timing: Days Duration: Since onset Prehospital treatment: None Past Medical History PAST MEDICAL HISTORY: Denies 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: No Pertinent CO FOUNDER AND CHIEF STRATEGY OFFICER History Family History Family History: Reviewed,noncontributory to illness Social History Smoker: Non-Smoker Alcohol: Occasionally Drugs: Marijuana Lives In: Home All Other Systems: Reviewed and Negative (Comprehensive review of systems are negative unless stated in HPI) Physical Exam General Appearance: Mild Distress, Obese HEENT: Normal ENT Inspection, Pharynx Normal, TMs Normal Neck: Full Range of Motion, Non-Tender, Normal, Normal Inspection Respiratory: Chest Non-Tender, Lungs Clear, No Accessory Muscle Use, No Respiratory Distress, Normal Breath Sounds Cardiovascular: No Edema, No JVD, No Murmur, No Gallop, Normal Peripheral Pulses, Regular Rate/Rhythm Breast Exam: Deferred Gastrointestinal: Epigastric (tenderness ), No Organomegaly, No Pulsatile Mass, Normal Bowel Sounds, Soft, Tenderness (epigastric region ) Genitalia: Deferred Pelvic: Deferred Rectal: Deferred Extremities: No calf tenderness, Normal capillary refill, Normal inspection, Normal range of motion, Non-tender, No pedal edema Musculoskeletal : Apperance: Normal Neurologic: Alert, reshipping clerk II-XII nml as Tested, No Motor Deficits, Normal Affect, Normal Mood, No Sensory Deficits Cerebellar Function: Normal Reflexes: Normal Skin: Dry, Normal Color, Warm Lymphatic: No Adenopathy Was a procedure done? Was a procedure done?: No Differential Dx Considerations may include: gastritis, gastroenteritis, GERD, cholelithiasis, cholecystitis, among others X-Ray, Labs, Meds, VS Vital Signs Date Time Temp Pulse Resp B/P (MAP) Pulse Ox O2 Delivery O2 Flow Rate FiO2 04/12/25 22:41 98.2 85 18 117/68 (84) 99 98.2 04/12/25 19:07 98.0 114 16 104/75 100 98.0 Lab Test 04/12/25 20:28 04/12/25 20:27 04/12/25 19:32 Range/Units Urine Color Yellow Yellow Urine Clarity Turbid H Clear Urine pH 7.5 5.0-9.0 Urine Specific [place] 1.023 1.001-1.035 Urine Protein 1+ H Negative Urine Ketones Trace Negative Urine Blood 3+ H Negative /uL Urine Nitrite Negative Negative Urine Bilirubin 1+ H Negative Urine Urobilinogen 6 Negative mg/dL Urine Leukocyte Esterase 1+ Negative /uL Urine RBC 3 0 - 4 /hpf Urine Microscopic WBC 7 H 0-5 /HPF Urine Squamous Epithelial Cells Many <5 /hpf Urine Amorphous Crystals Few None Seen /hpf Urine Bacteria Few H None Seen /hpf Urine Hyaline Casts Few 0 - 2 /lpf Urine Mucus Few None Seen Urine Glucose Normal Normal mg/dL Urine Test Negative Negative White Blood Count 9.0 4.4-10.8 10^3/uL Red Blood Count 5.11 4.0-5.20 10^6/uL Hemoglobin 15.2 12.2-16.2 g/dL Hematocrit 45.0 36.0-46.0 % Mean Corpuscular Volume 88.1 80.0-100.0 fL Mean Corpuscular Hemoglobin 29.7 28.0-32.0 pg Mean Corpuscular Hemoglobin Concent 33.7 32.0-36.0 g/dL Red Cell Distribution Width 13.8 11.8-14.3 % Platelet Count 294 140-450 10^3/uL Mean Platelet Volume 9.6 6.9-10.8 fL Neutrophils (%) (Auto) 48.8 37.0-80.0 % Lymphocytes (%) (Auto) 41.6 10.0-50.0 % Monocytes (%) (Auto) 5.5 0.0-12.0 % Eosinophils (%) (Auto) 2.0 0.0-7.0 % Basophils (%) (Auto) 2.1 H 0.0-2.0 % Neutrophils # (Auto) 4.4 1.6-8.6 10 ^3/uL Lymphocytes # (Auto) 3.7 0.4-5.4 10 ^3/uL Monocytes # (Auto) 0.5 0-1.3 10 ^3/uL Eosinophils # (Auto) 0.2 0-0.8 10 ^3/uL Basophils # (Auto) 0.2 0-0.2 10 ^3/uL Nucleated Red Blood Cells 0.3 % Sodium Level 142 136-145 mmol/L Potassium Level 4.2 3.5-5.1 mmol/L Chloride Level 104 98-107 mmol/L Carbon Dioxide Level 25 20-31 mmol/L Anion Gap 13 5-15 Blood Urea Nitrogen 9 9-23 mg/dL Creatinine 0.92 0.550-1.02 mg/dL Glomerular Filtration Rate Calc 84 >90 mL/min BUN/Creatinine Ratio 9.8 L 10.0-20.0 Serum Glucose 93 74-106 mg/dL Calcium Level 10.1 8.7-10.4 mg/dL Total Bilirubin 1.5 H 0.2-1.0 mg/dL Aspartate Amino Transferase (AST) 53 H 13-40 U/L Alanine Aminotransferase (ALT) 43 H 7-40 U/L Alkaline Phosphatase 72 46-116 U/L Total Protein 7.8 5.7-8.2 g/dL Albumin 4.8 3.2-4.8 g/dL Lipase 49 12-53 U/L Time of 1ST Reevaluation: 20:30 Reevaluation 1ST: Unchanged Patient Education/Counseling: Diagnosis, Treatment, Need For Follow Up Family Education/Counseling: No Family Present SEPSIS Sepsis Screen Date sepsis recognized/suspect: Apr 12, 2025 Time Sepsis recognized/suspect: 1906 Recent Procedure: No On Antibiotic Therapy: No Respiratory Rate >20: No Heart Rate >90: Yes Temp<36 C (96.8 F) or >38.3 C: No SBP <90 or MAP <65 mmHG: No New Acute Mental Status Change: No Is the patient on CPAP, BIPAP,: No Physician Orders Gallbladder (04/12/25 20:35) Zosyn Extended Infusion (04/12/25 23:00) Vital Signs Date Time Temp Pulse Resp B/P (MAP) Pulse Ox O2 Delivery O2 Flow Rate FiO2 04/12/25 22:41 98.2 85 18 117/68 (84) 99 98.2 04/12/25 19:07 98.0 114 16 104/75 100 98.0 Laboratory Tests Test 04/12/25 19:32 White Blood Count 9.0 10^3/uL (4.4-10.8) Departure 1 Departure Time of Disposition: 22:47 Impression: Primary Impression: Acute cholecystitis Disposition: ADMITTED INPATIENT Admit to: Med Surg Condition: Guarded Discharged With: Self Comments Patient with gallstones. Ultrasound shows positive sonographic Daniel sign. Patient with significant pain. Patient was given pain medication and IV Zosyn antibiotics. Patient will need to be admitted for acute cholecystitis. Critical Care Note Critical Care Time?: No Stability Stability form required: No Heart Score Heart Score: Heart Score Response (Comments) Value History N/A 0 EKG N/A 0 Age N/A 0 Risk Factors N/A 0 Troponin N/A 0 Total 0 I personally scribed for ANA PAULA TOLLIVER MD ([email or web address]) on 04/12/25 at 20:45. Electronically submitted by Daniel Vasquez [email or web address]). ANA PAULA TOLLIVER MD Apr 12, 2025 20:45
--- NOTE | 2025-04-12 22:26 | DVH ---
ULTRASOUND ABDOMEN, LIMITED RIGHT UPPER QUADRANT: REASON FOR EXAM: RUQ pain TECHNIQUE: Real-time sector scans in the transverse and longitudinal planes were obtained through th e right upper quadrant of the abdomen. FINDINGS: The liver is of normal size and contour. There is no intrahepatic nor extrahepatic biliar y ductal dilatation. There is hepatopetal flow in the portal vein. The common bile duct measures 4 mm . There is gallbladder sludge. There are several shadowing gallstones. There is no gallbladder wal l thickening nor pericholecystic fluid. There is a sonographic Daniel's sign. The visualized portion of the pancreas is unremarkable. The right kidney measures 10.9 cm. No hydronephrosis or nephrolithiasis is identified. There is no evidence of right renal mass or cyst. The visualized portions of the abdominal aorta demonstrate no evidence of aneurysmal dilatation. The visualized inferior vena cava is unremarkable. There is no free fluid identified in the right upper quadrant. IMPRESSION: Cholelithiasis. Sonographic Daniel's sign is present. These findings would be consistent with acute c holecystitis.
[2025-04-12] MEDS: HYDROcodone-ACET 10/325MG TAB PO ONE (22:58)
[2025-04-12] MEDS: DICYCLOMINE HCL (10MG/ML) 2 ML AMPULE IM ONE (22:58)
[2025-04-12] MEDS: ONDANSETRON ODT 4 MG TAB PO ONE (22:58)
[2025-04-12] MEDS: PIPERACILLIN-TAZOB 3.375GM 100 ML IV ONE (23:00)
[2025-04-12] MEDS ORDERED: MORPHINE SULFATE INJ 2 MG/ml SYRG IV PRN (23:15)
--- NOTE | 2025-04-12 23:20 | DVHHP2 ---
History of Present Illness Reason for Visit: Abdominal pain History of Present Illness 34-year-old female presents for evaluation of abdominal pain. Patient reports a one day history of sharp epigastric abdominal pain that radiates to her back. Denies nausea, vomiting or fever. She reports having an abdominal MRI on March of this year which showed sludge in her gallbladder. Past Medical History Denies Past Surgical History Family History Noncontributory Smoke: No ALCOHOL: occassional Drugs: Marijuana Lives: with Family Review of Systems Review of Systems Review of systems are currently negative otherwise addressed in HPI. Allergies: Coded Allergies: No Known Drug Allergy (Verified Allergy, Unknown, 08/16/20) Exam Vital Signs Vital Signs Date Time Temp Pulse Resp B/P (MAP) Pulse Ox O2 Delivery O2 Flow Rate FiO2 04/12/25 22:41 98.2 85 18 117/68 (84) 99 98.2 Exam Gen: 34-year-old female in mild distress Skin: Warm, dry, normal color and texture, no rash. HEENT: Normocephalic atraumatic, mucous membranes moist and pink. Neck: Cervical and supraclavicular nodes normal without enlargement, trachea is midline, thyroid gland is normal without masses. Pulmonary: Clear to auscultation and percussion bilaterally. Cardiac: Regular rate and rhythm. No murmur Abdomen: Soft, epigastric pain, nondistended, bowel sounds present all 4 quadrants, no guarding, no rigidity, no organomegaly. Extremities: No cyanosis, clubbing, no edema Neuro: Cranial nerves II through XII grossly intact, normal affect and speech, no focal motor deficits. Labs/Xrays ORDERING PHYSICIAN: ANA PAULA TOLLIVER MD PROCEDURE(s): GBUS - GALLBLADDER REASON: RUQ pain ORDER NUMBER(s): [id number], ACCESSION NUMBER(s): [id number] ULTRASOUND ABDOMEN, LIMITED RIGHT UPPER QUADRANT: REASON FOR EXAM: RUQ pain TECHNIQUE: Real-time sector scans in the transverse and longitudinal planes were obtained through the right upper quadrant of the abdomen. FINDINGS: The liver is of normal size and contour. There is no intrahepatic nor extrahepatic biliary ductal dilatation. There is hepatopetal flow in the portal vein. The common bile duct measures 4 mm. There is gallbladder sludge. There are several shadowing gallstones. There is no gallbladder wall thickening nor pericholecystic fluid. There is a sonographic Daniel's sign. The visualized portion of the pancreas is unremarkable. The right kidney measures 10.9 cm. No hydronephrosis or nephrolithiasis is identified. There is no evidence of right renal mass or cyst. The visualized portions of the abdominal aorta demonstrate no evidence of aneurysmal dilatation. The visualized inferior vena cava is unremarkable. There is no free fluid identified in the right upper quadrant. IMPRESSION: Cholelithiasis. Sonographic Daniel's sign is present. These findings would be consistent with acute cholecystitis. Labs Test 04/12/25 20:28 04/12/25 20:27 04/12/25 19:32 Range/Units Urine Color Yellow Yellow Urine Clarity Turbid H Clear Urine pH 7.5 5.0-9.0 Urine Specific [place] 1.023 1.001-1.035 Urine Protein 1+ H Negative Urine Ketones Trace Negative Urine Blood 3+ H Negative /uL Urine Nitrite Negative Negative Urine Bilirubin 1+ H Negative Urine Urobilinogen 6 Negative mg/dL Urine Leukocyte Esterase 1+ Negative /uL Urine RBC 3 0 - 4 /hpf Urine Microscopic WBC 7 H 0-5 /HPF Urine Squamous Epithelial Cells Many <5 /hpf Urine Amorphous Crystals Few None Seen /hpf Urine Bacteria Few H None Seen /hpf Urine Hyaline Casts Few 0 - 2 /lpf Urine Mucus Few None Seen Urine Glucose Normal Normal mg/dL Urine Test Negative Negative White Blood Count 9.0 4.4-10.8 10^3/uL Red Blood Count 5.11 4.0-5.20 10^6/uL Hemoglobin 15.2 12.2-16.2 g/dL Hematocrit 45.0 36.0-46.0 % Mean Corpuscular Volume 88.1 80.0-100.0 fL Mean Corpuscular Hemoglobin 29.7 28.0-32.0 pg Mean Corpuscular Hemoglobin Concent 33.7 32.0-36.0 g/dL Red Cell Distribution Width 13.8 11.8-14.3 % Platelet Count 294 140-450 10^3/uL Mean Platelet Volume 9.6 6.9-10.8 fL Neutrophils (%) (Auto) 48.8 37.0-80.0 % Lymphocytes (%) (Auto) 41.6 10.0-50.0 % Monocytes (%) (Auto) 5.5 0.0-12.0 % Eosinophils (%) (Auto) 2.0 0.0-7.0 % Basophils (%) (Auto) 2.1 H 0.0-2.0 % Neutrophils # (Auto) 4.4 1.6-8.6 10 ^3/uL Lymphocytes # (Auto) 3.7 0.4-5.4 10 ^3/uL Monocytes # (Auto) 0.5 0-1.3 10 ^3/uL Eosinophils # (Auto) 0.2 0-0.8 10 ^3/uL Basophils # (Auto) 0.2 0-0.2 10 ^3/uL Nucleated Red Blood Cells 0.3 % Sodium Level 142 136-145 mmol/L Potassium Level 4.2 3.5-5.1 mmol/L Chloride Level 104 98-107 mmol/L Carbon Dioxide Level 25 20-31 mmol/L Anion Gap 13 5-15 Blood Urea Nitrogen 9 9-23 mg/dL Creatinine 0.92 0.550-1.02 mg/dL Glomerular Filtration Rate Calc 84 >90 mL/min BUN/Creatinine Ratio 9.8 L 10.0-20.0 Serum Glucose 93 74-106 mg/dL Calcium Level 10.1 8.7-10.4 mg/dL Total Bilirubin 1.5 H 0.2-1.0 mg/dL Aspartate Amino Transferase (AST) 53 H 13-40 U/L Alanine Aminotransferase (ALT) 43 H 7-40 U/L Alkaline Phosphatase 72 46-116 U/L Total Protein 7.8 5.7-8.2 g/dL Albumin 4.8 3.2-4.8 g/dL Lipase 49 12-53 U/L SEPSIS Sepsis Screen Date sepsis recognized/suspect: Apr 12, 2025 Time Sepsis recognized/suspect: 1906 Recent Procedure: No On Antibiotic Therapy: No Respiratory Rate >20: No Heart Rate >90: Yes Temp<36 C (96.8 F) or >38.3 C: No SBP <90 or MAP <65 mmHG: No New Acute Mental Status Change: No Is the patient on CPAP, BIPAP,: No Physician Orders Gallbladder (04/12/25 20:35) Piperacillin-Tazob 3.375gm (Zosyn 3.375g (04/12/25 23:00) PTPTT (04/12/25 23:12) * Surgical Consult (04/12/25 ) Zosyn Extended Infusion (04/13/25 00:00) NS (04/12/25 23:15) Pantoprazole (Protonix) (04/13/25 10:00) Admit (04/12/25 23:12) Ondansetron Hcl (Zofran) (04/12/25 23:15) Complete Blood Count (04/13/25 04:00) Comprehensive Metabolic Panel (04/13/25 04:00) Npo (Nothing By Mouth) Diet (04/13/25 Breakfast) Condition: Stable (04/12/25 23:12) Bedrest With Bathroom Privileg (04/12/25 23:12) Morphine Sulfate Injection (04/12/25 23:15) Chest Xray 1 View (04/12/25 23:12) Vital Signs Date Time Temp Pulse Resp B/P (MAP) Pulse Ox O2 Delivery O2 Flow Rate FiO2 04/12/25 22:41 98.2 85 18 117/68 (84) 99 98.2 04/12/25 19:07 98.0 114 16 104/75 100 98.0 Laboratory Tests Test 04/12/25 19:32 White Blood Count 9.0 10^3/uL (4.4-10.8) Medications Medications Dose Ordered Sig/Zaynab Route Start Time Stop Time Status Last Admin Dose Admin Acetaminophen/ Hydrocodone Bitart 1 tab ONCE ONCE PO 04/12/25 20:45 04/12/25 20:46 DC 04/12/25 22:58 1 TAB Dicyclomine HCl 20 mg ONCE ONCE IM 04/12/25 20:45 04/12/25 20:46 DC 04/12/25 22:58 20 MG Ondansetron HCl 8 mg ONCE ONCE PO 04/12/25 20:45 04/12/25 20:46 DC 04/12/25 22:58 8 MG Assessment/Plan Assessment/Plan Assessment Acute abdominal pain Acute cholecystitis Plan Admit the patient to Med surge to the hospitalist Savannasylanette Maintenance IV fluids NPO Surgical consultation Pain management Continue treatment per orders. Plan discussed with: Patient My Orders Orders - JIM MCELROY Procedure Category Date Status Time PTPTT LAB 04/12/25 Transmitted 23:12 * Surgical Consult CONS 04/12/25 Transmitted Zosyn Extended PHA 04/13/25 Transmitted Infusion 00:00 NS PHA 04/12/25 Transmitted 23:15 Pantoprazole PHA 04/13/25 Transmitted (Protonix) 10:00 Admit ADMIT 04/12/25 Transmitted 23:12 Ondansetron Hcl PHA 04/12/25 Transmitted (Zofran) 23:15 Complete Blood Count LAB 04/13/25 Verified 04:00 Comprehensive LAB 04/13/25 Verified Metabolic Panel 04:00 Npo (Nothing By DIET 04/13/25 Transmitted Mouth) Diet Breakfast Condition: Stable YUE 04/12/25 Transmitted 23:12 Bedrest With Bathroom YUE 04/12/25 Transmitted Privileg 23:12 Morphine Sulfate PHA 04/12/25 Transmitted Injection 23:15 Chest Xray 1 View XY 04/12/25 Transmitted 23:12 Date of Service: Apr 12, 2025 Billing Provider: JIM MCELROY Common Visit Codes: [id number] INP/OBS CARE (MOD) JIM MCELROY Apr 12, 2025 23:20
--- NOTE | 2025-04-12 23:30 | DVH ---
CHEST RADIOGRAPH Indication: preop Technique: Single frontal view of the chest was obtained COMPARISON: XY CHEST PORTABLE on DOS: 06/24/24, CHEST PORTABLE on DOS: 07/09/22, CXRP on DOS: 07/09/22 FINDINGS: Lungs and pleural spaces are clear. Cardiac silhouette and anders are within normal limits. Bones and s oft tissues demonstrate no significant abnormality. IMPRESSION: No acute disease.
[2025-04-12 23:39] LABS: INR 1.02 (0.9-1.15); Partial Thromboplastin Time 28.4 SEC (24.5-34.5); Prothrombin Time 10.8 sec (9.3-11.8)
[2025-04-13] MEDS: SODIUM CHLORIDE 0.9% 1,000 ML IV ONE (02:02)
[2025-04-13] MEDS ORDERED: TIRZ7.5I2 SC (02:23)
[2025-04-13] MEDS ORDERED: MECL25CH20 PO (02:23)
[2025-04-13] MEDS ORDERED: CICL8SOL21 TOP (02:23)
[2025-04-13 04:38] LABS: Hematocrit 39.6 % (36.0-46.0); Hemoglobin 13.4 g/dL (12.2-16.2); Mean Corpuscular Hemoglobin 29.7 pg (28.0-32.0); Mean Corpuscular Volume 88.0 fL (80.0-100.0); Nucleated Red Blood Cells % 0.1 %
[2025-04-13 04:50] LABS: Alanine Aminotransferase 88 U/L (7-40); Albumin 4.2 g/dL (3.2-4.8); Alkaline Phosphatase 99 U/L (46-116); Anion Gap 12 (5-15); BUN/Creatinine Ratio 8.5 (10.0-20.0); Bilirubin, Total 2.8 mg/dL (0.2-1.0); Blood Urea Nitrogen 8 mg/dL (9-23); Calcium 9.2 mg/dL (8.7-10.4); Carbon Dioxide 25 mmol/L (20-31); Chloride 104 mmol/L (98-107); Glucose 103 mg/dL (74-106); Potassium 3.9 mmol/L (3.5-5.1); Sodium 141 mmol/L (136-145); Total Protein 6.9 g/dL (5.7-8.2)
[2025-04-13] MEDS: PIPERACILLIN-TAZOB 3.375GM 100 ML IV SCH (06:17)
[2025-04-13] MEDS: PANTOPRAZOLE 40 MG/10 ML VIAL INJ IV SCH (09:52)
[2025-04-13 10:00] VITALS: BP 99/67; PULSE 69; RESP 18; TEMP 97.6; O2SAT 100
[2025-04-13] MEDS: SODIUM CHLORIDE 0.9% 1,000 ML IV SCH (12:15)
[2025-04-13] MEDS ORDERED: HYDROcodone-ACET 5/325MG TAB PO PRN (12:15)
[2025-04-13] MEDS ORDERED: ACETAMINOPHEN 325 MG TAB PO PRN (12:15)
--- NOTE | 2025-04-13 12:16 | DVHPN2 ---
Progress Note Date Seen: Apr 13, 2025 Medical Necessity Reason Pt with a Central, PICC or Fol: No Subjective Patient reports: No new complaints Review of Systems: HEENT:Normal, CVS:Normal, RESPIRATORY:Normal, GI:Normal, :Normal, MSK:Normal, NEURO:Normal Objective vital signs Vital Sign Date Time Temp Pulse Resp B/P (MAP) Pulse Ox O2 Delivery O2 Flow Rate FiO2 04/13/25 10:00 97.6 69 18 99/67 (78) 100 97.6 04/13/25 00:53 Room Air* 0 21 medications Current Medications Medications Dose Ordered Sig/Zaynab Route Start Time Stop Time Status Last Admin Dose Admin Piperacillin Sod/ Tazobactam Sod 100 ml @ 25 mls/hr Q8HR IV 04/13/25 06:00 04/13/25 06:17 25 MLS/HR Pantoprazole Sodium 40 mg DAILY IV 04/13/25 10:00 04/13/25 09:52 40 MG Ondansetron HCl 4 mg Q4HP PRN IV 04/12/25 23:15 Morphine Sulfate 2 mg Q4HPRN PRN IV 04/12/25 23:15 Examination: GENERAL:Normal, HEENT:Normal, NECK:Normal, LUNGS:Normal, CVS:Normal, ABDOMEN:Normal, MSK:Normal, SKIN:Normal, NEURO:Normal, :Normal laboratory and microbiology Laboratory Tests 04/13/25 03:40 Test 04/13/25 03:40 Range/Units Serum Glucose 103 74-106 mg/dL Problem List/Assessment/Plan Problem List/Assessment/Plan #1 acute sebastián with gallstones: clear liquid, ivf , iv antibiotics #2 transaminitis #3 obesity Plan discussed with: Patient Date of Service: Apr 13, 2025 Billing Provider: JIM VALIENTE MD Common Visit Codes: [id number] INP/OBS CARE(HIGH) JIM VALIENTE MD Apr 13, 2025 12:16
[2025-04-13 13:00] VITALS: BP 107/64; PULSE 67; RESP 18; TEMP 97.9; O2SAT 99
--- NOTE | 2025-04-13 14:20 | DVHINCON2 ---
Date of service: Apr 13, 2025 Family History: Patient reports no known family medical history. Allergies: Coded Allergies: No Known Drug Allergy (Verified Allergy, Unknown, 08/16/20) Home Meds Reported Medications Meclizine Hcl (Meclizine Hcl) 25 Mg Chw, 1 TAB PO PRN for VERTIGO 04/13/25 Tirzepatide (Zepbound) 7.5 Mg/0.5 Ml Inj, 7.5 MG SC QWEEKLY 04/13/25 Ciclopirox (Ciclopirox Nail Lacquer) 8 % Leanne, 1 APPLIC TOP HS 04/13/25 Current Medications Current Medications Medications (Trade) Dose Ordered Sig/Zaynab Route PRN Reason Start Time Stop Time Status Last Admin Piperacillin Sod/ Tazobactam Sod 100 ml @ 25 mls/hr Q8HR IV 04/13/25 06:00 04/13/25 06:17 Pantoprazole Sodium (Protonix) 40 mg DAILY IV 04/13/25 10:00 04/13/25 09:52 Ondansetron HCl (Zofran) 4 mg Q4HP PRN IV NAUSEA / VOMITING 04/12/25 23:15 Morphine Sulfate 2 mg Q4HPRN PRN IV SEVERE PAIN (7-10 PAIN SCALE) 04/12/25 23:15 Sodium Chloride 1,000 ml @ 75 mls/hr [id number] IV 04/13/25 12:15 04/13/25 12:15 Acetaminophen/ Hydrocodone Bitart ([place] 5/325MG Tab) 1 tab Q6HPRN PRN PO MODERATE PAIN (4-6 PAIN SCALE) 04/13/25 12:15 Acetaminophen (Tylenol Tablet) 650 mg Q6HP PRN PO MILD PAIN (1-3 PAIN SCALE) 04/13/25 12:15 Vital Signs Vital Signs Date Time Temp Pulse Resp B/P (MAP) Pulse Ox O2 Delivery O2 Flow Rate FiO2 04/13/25 13:00 97.9 67 18 107/64 (78) 99 97.9 04/13/25 00:53 Room Air* 0 21 Labs/Diagnostic Data Labs Test 04/13/25 03:40 04/12/25 20:28 04/12/25 20:27 04/12/25 19:32 Range/Units White Blood Count 5.1 # 4.4-10.8 10^3/uL Red Blood Count 4.50 4.0-5.20 10^6/uL Hemoglobin 13.4 12.2-16.2 g/dL Hematocrit 39.6 # 36.0-46.0 % Mean Corpuscular Volume 88.0 80.0-100.0 fL Mean Corpuscular Hemoglobin 29.7 28.0-32.0 pg Mean Corpuscular Hemoglobin Concent 33.7 32.0-36.0 g/dL Red Cell Distribution Width 13.7 11.8-14.3 % Platelet Count 220 140-450 10^3/uL Mean Platelet Volume 9.9 6.9-10.8 fL Neutrophils (%) (Auto) 64.5 37.0-80.0 % Lymphocytes (%) (Auto) 27.3 10.0-50.0 % Monocytes (%) (Auto) 6.1 0.0-12.0 % Eosinophils (%) (Auto) 1.0 0.0-7.0 % Basophils (%) (Auto) 1.1 0.0-2.0 % Neutrophils # (Auto) 3.3 1.6-8.6 10 ^3/uL Lymphocytes # (Auto) 1.4 0.4-5.4 10 ^3/uL Monocytes # (Auto) 0.3 0-1.3 10 ^3/uL Eosinophils # (Auto) 0.1 0-0.8 10 ^3/uL Basophils # (Auto) 0.1 0-0.2 10 ^3/uL Nucleated Red Blood Cells 0.1 % Sodium Level 141 136-145 mmol/L Potassium Level 3.9 3.5-5.1 mmol/L Chloride Level 104 98-107 mmol/L Carbon Dioxide Level 25 20-31 mmol/L Anion Gap 12 5-15 Blood Urea Nitrogen 8 L 9-23 mg/dL Creatinine 0.94 0.550-1.02 mg/dL Glomerular Filtration Rate Calc 82 >90 mL/min BUN/Creatinine Ratio 8.5 L 10.0-20.0 Serum Glucose 103 74-106 mg/dL Calcium Level 9.2 8.7-10.4 mg/dL Total Bilirubin 2.8 H 0.2-1.0 mg/dL Aspartate Amino Transferase (AST) 140 H 13-40 U/L Alanine Aminotransferase (ALT) 88 H 7-40 U/L Alkaline Phosphatase 99 46-116 U/L Total Protein 6.9 5.7-8.2 g/dL Albumin 4.2 3.2-4.8 g/dL Urine Color Yellow Yellow Urine Clarity Turbid H Clear Urine pH 7.5 5.0-9.0 Urine Specific [place] 1.023 1.001-1.035 Urine Protein 1+ H Negative Urine Ketones Trace Negative Urine Blood 3+ H Negative /uL Urine Nitrite Negative Negative Urine Bilirubin 1+ H Negative Urine Urobilinogen 6 Negative mg/dL Urine Leukocyte Esterase 1+ Negative /uL Urine RBC 3 0 - 4 /hpf Urine Microscopic WBC 7 H 0-5 /HPF Urine Squamous Epithelial Cells Many <5 /hpf Urine Amorphous Crystals Few None Seen /hpf Urine Bacteria Few H None Seen /hpf Urine Hyaline Casts Few 0 - 2 /lpf Urine Mucus Few None Seen Urine Glucose Normal Normal mg/dL Urine Test Negative Negative Prothrombin Time 10.8 9.3-11.8 sec Prothrombin Time INR 1.02 0.9-1.15 Activated Partial Thromboplast Time 28.4 24.5-34.5 SEC Lipase 49 12-53 U/L Assessment [id number] C/O RUQ PAIN AFEBRILE VSS ABD SOFT TENDER RUQ R/O AC CHOLECYSTITIS MILD LFT ELEVATION CONSIDER EMERGENT /ELECTIVE GB SURGERY BASED ON ONGOING EVAL REPEAT LABS AM Plan discussed with: Patient RAYSA ISLAS MD Apr 13, 2025 14:20
--- NOTE | 2025-04-13 14:25 | DVHINCON2 ---
DATE OF CONSULTATION: 04/13/2025 HISTORY OF PRESENT ILLNESS: This patient is 34 years old, coming in with right upper quadrant pain off and on. Some nausea. No vomiting. No constipation or diarrhea. No hematemesis or melena. No bleeding per rectum. PAST MEDICAL HISTORY: No diabetes or hypertension. PAST SURGICAL HISTORY: and [employer] surgery. PHYSICAL EXAMINATION: VITAL SIGNS: Afebrile, stable signs. HEENT: With no evidence of pallor, cyanosis or jaundice. NECK: Supple, nontender with no thyromegaly or lymphadenopathy. CHEST AND LUNGS: Clear. HEART: Within normal limits. ABDOMEN: Soft, tender in the right upper quadrant with no rebound. EXTREMITIES: Unremarkable. NEUROLOGIC: Intact. CLINICAL IMPRESSION: Acute cholecystitis. PLAN: Laparoscopic possible open cholecystectomy. Benefits were discussed and the consent obtained. MD CRISTAL Sharma/MARIE TID: [id number] RECEIPT: [id number] cc: Charlie Osorio NP
[2025-04-13 17:14] VITALS: BP 93/52; PULSE 67; RESP 18; TEMP 98.2; O2SAT 99
[2025-04-13 22:16] VITALS: PULSE 74; RESP 17; O2SAT 100
[2025-04-14 01:00] VITALS: BP 118/78; PULSE 74; RESP 17; TEMP 97; O2SAT 100
[2025-04-14 06:01] LABS: Hematocrit 35.6 % (36.0-46.0); Hemoglobin 11.8 g/dL (12.2-16.2); Mean Corpuscular Hemoglobin 29.1 pg (28.0-32.0); Mean Corpuscular Volume 87.7 fL (80.0-100.0); Nucleated Red Blood Cells % 0.1 %
[2025-04-14 06:22] LABS: Albumin 3.6 g/dL (3.2-4.8); Alkaline Phosphatase 76 U/L (46-116); Anion Gap 10 (5-15); BUN/Creatinine Ratio 6.3 (10.0-20.0); Calcium 8.8 mg/dL (8.7-10.4); Carbon Dioxide 24 mmol/L (20-31); Chloride 107 mmol/L (98-107); Sodium 141 mmol/L (136-145); Total Protein 6.0 g/dL (5.7-8.2)
[2025-04-14 06:30] LABS: Alanine Aminotransferase 61 U/L (7-40); Bilirubin, Total 1.2 mg/dL (0.2-1.0); Blood Urea Nitrogen 6 mg/dL (9-23); Glucose 74 mg/dL (74-106); Potassium 3.4 mmol/L (3.5-5.1)
[2025-04-14 09:39] VITALS: BP 103/54; PULSE 74; RESP 15; TEMP 98.1; O2SAT 98
[2025-04-14] MEDS ORDERED: PROPOFOL 10 MG/ML 20 ML IV ONE (10:20)
[2025-04-14] MEDS ORDERED: fentaNYL CITRATE 100 MCG/2 ML VL ONE (10:20)
[2025-04-14] MEDS ORDERED: HYDROmorphone HCL 2 MG/ML VL/or syr ONE (10:20)
[2025-04-14] MEDS ORDERED: ROCURONIUM 10MG/ML 10ML VIAL IV ONE (10:39)
[2025-04-14] MEDS ORDERED: ONDANSETRON HCL 4 MG/2 ML VIAL ONE (10:40)
--- NOTE | 2025-04-14 10:46 | DVHPN2 ---
Progress Note Date Seen: Apr 14, 2025 Medical Necessity Reason Pt with a Central, PICC or Fol: No Subjective Patient reports: No new complaints Review of Systems: HEENT:Normal, CVS:Normal, RESPIRATORY:Normal, GI:Normal, :Normal, MSK:Normal, NEURO:Normal Objective vital signs Vital Sign Date Time Temp Pulse Resp B/P (MAP) Pulse Ox O2 Delivery O2 Flow Rate FiO2 04/14/25 09:39 98.1 74 15 103/54 (70) 98 98.1 04/13/25 22:16 Room Air* 0 21 Total Intake and Output 04/13/25 04/13/25 04/14/25 15:00 23:00 07:00 Intake Total 360 ml 0 ml Balance 360 ml 0 ml medications Current Medications Medications Dose Ordered Sig/Zyanab Route Start Time Stop Time Status Last Admin Dose Admin Piperacillin Sod/ Tazobactam Sod 100 ml @ 25 mls/hr Q8HR IV 04/13/25 06:00 04/14/25 05:28 25 MLS/HR Pantoprazole Sodium 40 mg DAILY IV 04/13/25 10:00 04/13/25 09:52 40 MG Ondansetron HCl 4 mg Q4HP PRN IV 04/12/25 23:15 Morphine Sulfate 2 mg Q4HPRN PRN IV 04/12/25 23:15 Sodium Chloride 1,000 ml @ 75 mls/hr [id number] IV 04/13/25 12:15 04/13/25 12:15 75 MLS/HR Acetaminophen/ Hydrocodone Bitart 1 tab Q6HPRN PRN PO 04/13/25 12:15 Acetaminophen 650 mg Q6HP PRN PO 04/13/25 12:15 Examination: GENERAL:Normal, HEENT:Normal, NECK:Normal, LUNGS:Normal, CVS:Normal, ABDOMEN:Normal, MSK:Normal, SKIN:Normal, NEURO:Normal, :Normal laboratory and microbiology Laboratory Tests 04/14/25 04:55 Test 04/14/25 04:55 Range/Units Serum Glucose 74 74-106 mg/dL Problem List/Assessment/Plan Problem List/Assessment/Plan #1 acute sebastián with gallstones: clear liquid, ivf , iv antibiotics, surg today #2 transaminitis #3 obesity Plan discussed with: Other (rn) My Orders My Orders Orders - JIM VALIENTE MD Procedure Category Date Status Time * Surgical Consult CONS 04/13/25 Transmitted Sodium Chloride 0.9% PHA 04/13/25 In Process 12:15 Hydrocodone-Acet PHA 04/13/25 In Process 5/325mg Tab ([place] 12:15 Acetaminophen Tablet PHA 04/13/25 In Process (Tylenol Tablet) 12:15 Complete Blood Count LAB 04/15/25 Verified 06:00 Comprehensive LAB 04/15/25 Verified Metabolic Panel 06:00 Date of Service: Apr 14, 2025 Billing Provider: JIM VALIENTE MD Common Visit Codes: [id number] INP/OBS CARE(HIGH) JIM VALIENTE MD Apr 14, 2025 10:46
[2025-04-14] MEDS: BUPIVACAINE 0.25% INJ 50ML VIAL IJ ONE (10:50)
[2025-04-14] MEDS ORDERED: SUGAMMADEX 200mg/2ml Vial (100MG/ML) IV ONE (11:33)
--- NOTE | 2025-04-14 11:41 | DVHOP2 ---
Operative Report [id number] AC CHOLECYSTITIS ADHESIONS LAP [place] LAP CHOLECYSTECTOMY EBL 5 CC NO DRAINS NO COMPLICATIONS STABLE RECOVERY ROOM RAYSA ISLAS MD Apr 14, 2025 11:41
[2025-04-14 11:43] VITALS: PULSE 107; RESP 12; O2SAT 90
--- NOTE | 2025-04-14 11:55 | DVHOP ---
DATE OF SURGERY: 04/14/2025 PREOPERATIVE DIAGNOSIS: Acute cholecystitis. POSTOPERATIVE DIAGNOSIS: Acute cholecystitis. PROCEDURE: Laparoscopic lysis of adhesions and laparoscopic cholecystectomy. SURGEON: Dmitri Daigle MD SENIOR MANAGING DIRECTOR: None. ANESTHESIA: General. BLOOD LOSS: Close to 5 mL. DRAINS: No drains were used. COMPLICATIONS: No complications encountered. DESCRIPTION OF PROCEDURE: The patient was prepped and draped in the usual sterile fashion in the supine position and an infraumbilical incision applied, was taken down to the fascia. The Veress needle was introduced and CO2 insufflation was started at a pressure of 15 mmHg. The needle was withdrawn and replaced by a 5 mm trocar. The telescope was introduced and the gallbladder was visualized. There was found to be acute on chronic inflammation with omental adhesions around it. A 12 mm port was applied close to the xiphisternum and two 5 mm ports applied more laterally to the subcostal line. With the instruments in place, the gallbladder was grasped at the fundus and at the infundibulum. After the adhesions were taken down with the patient in the head up and right lateral position, the Harmonic device was used to take the adhesions down meticulously and the gallbladder was grasped at the fundus and at the infundibulum and the cystic duct and artery were , dissected out, clipped proximally and distally using Hem-o-Sheila clips and divided in between, making sure CBD was kept out of harm's way at all times. The gallbladder was detached from the liver bed using Harmonic dissection, placed in an EndoCatch bag and removed from the xiphisternum wound without any complication. Surgicel was applied to the liver bed. Hemostasis was excellent. The port sites were free from bleeding. EndoClose suture was used for the fascial closure of the xiphisternum wound. All the ports were withdrawn after all the CO2 had been let out and the patient was placed back supine. The wounds were then brought together using 3-0 Monocryl suture in a subcuticular fashion. Surgical glue was applied. The patient tolerated the procedure well was taken back to the recovery room in stable condition. MD CRISTAL Sharma/HAYLIE TID: [id number] RECEIPT: [id number]
[2025-04-14] MEDS: HYDROmorphone HCL 2 MG/ML VL/or syr IV PRN (11:57)
[2025-04-14] MEDS: ACETAMINOPHEN IV 100 ML IV ONE (11:58)
[2025-04-14] MEDS: ACETAMINOPHEN IV 1000 MG/100ML (10MG/ML) IV PRN (11:58)
[2025-04-14] MEDS ORDERED: fentaNYL CITRATE 100 MCG/2 ML VL IV PRN (12:00)
[2025-04-14] MEDS ORDERED: ONDANSETRON HCL 4 MG/2 ML VIAL IV PRN (12:00)
[2025-04-14 12:15] VITALS: PULSE 96; RESP 18; O2SAT 100
[2025-04-14] MEDS: SUCCINYLCHOLINE CHLORIDE 20 MG/ML 10ML VIAL IV ONE (12:26)
[2025-04-14] MEDS: ceFAZolin 2 GM/D5W50ml 50 ML IV ONE (12:26)
[2025-04-14] MEDS: HYDROmorphone HCL 2 MG/ML VL/or syr ONE (12:53)
[2025-04-14] MEDS ORDERED: KETOROLAC TROMETH 30 MG/ML 1ML VIAL IV PRN (13:00)
[2025-04-14] MEDS: KETOROLAC TROMETH 30 MG/ML 1ML VIAL IV PRN (14:50)
[2025-04-14] MEDS: ONDANSETRON HCL 4 MG/2 ML VIAL IV PRN (14:57)
[2025-04-14 17:00] VITALS: BP 104/53; PULSE 76; RESP 16; TEMP 97.7; O2SAT 100
[2025-04-14 21:00] VITALS: BP 92/50; PULSE 67; RESP 15; TEMP 97.9; O2SAT 98
[2025-04-15 01:00] VITALS: BP 89/45; PULSE 69; RESP 14; TEMP 98.1; O2SAT 100
[2025-04-15 05:00] VITALS: BP 93/49; PULSE 91; RESP 14; TEMP 97.5; O2SAT 99
[2025-04-15 05:49] LABS: Hematocrit 36.3 % (36.0-46.0); Hemoglobin 12.2 g/dL (12.2-16.2); Mean Corpuscular Hemoglobin 29.6 pg (28.0-32.0); Mean Corpuscular Volume 87.9 fL (80.0-100.0); Nucleated Red Blood Cells % 0.1 %
[2025-04-15 06:09] LABS: Alanine Aminotransferase 49 U/L (7-40); Albumin 3.8 g/dL (3.2-4.8); Alkaline Phosphatase 67 U/L (46-116); Anion Gap 13 (5-15); BUN/Creatinine Ratio 8.5 (10.0-20.0); Bilirubin, Total 0.9 mg/dL (0.2-1.0); Blood Urea Nitrogen 7 mg/dL (9-23); Calcium 9.2 mg/dL (8.7-10.4); Carbon Dioxide 21 mmol/L (20-31); Chloride 106 mmol/L (98-107); Glucose 92 mg/dL (74-106); Potassium 4.0 mmol/L (3.5-5.1); Sodium 140 mmol/L (136-145); Total Protein 6.3 g/dL (5.7-8.2)
--- NOTE | 2025-04-15 13:27 | DVHDS2 ---
Discharge Summary Date of Admission Apr 12, 2025 at 23:12 Date of Discharge: Apr 15, 2025 Labs/Diagnostic Data: Laboratory Results Test 04/15/25 05:22 04/12/25 20:28 04/12/25 20:27 04/12/25 19:32 White Blood Count 7.0 10^3/uL (4.4-10.8) Red Blood Count 4.13 10^6/uL (4.0-5.20) Hemoglobin 12.2 g/dL (12.2-16.2) Hematocrit 36.3 % (36.0-46.0) Mean Corpuscular Volume 87.9 fL (80.0-100.0) Mean Corpuscular Hemoglobin 29.6 pg (28.0-32.0) Mean Corpuscular Hemoglobin Concent 33.6 g/dL (32.0-36.0) Red Cell Distribution Width 13.6 % (11.8-14.3) Platelet Count 203 10^3/uL (140-450) Mean Platelet Volume 10.0 fL (6.9-10.8) Neutrophils (%) (Auto) 80.4 % (37.0-80.0) Lymphocytes (%) (Auto) 15.7 % (10.0-50.0) Monocytes (%) (Auto) 3.4 % (0.0-12.0) Eosinophils (%) (Auto) 0.2 % (0.0-7.0) Basophils (%) (Auto) 0.3 % (0.0-2.0) Neutrophils # (Auto) 5.6 10 ^3/uL (1.6-8.6) Lymphocytes # (Auto) 1.1 10 ^3/uL (0.4-5.4) Monocytes # (Auto) 0.2 10 ^3/uL (0-1.3) Eosinophils # (Auto) 0 10 ^3/uL (0-0.8) Basophils # (Auto) 0 10 ^3/uL (0-0.2) Nucleated Red Blood Cells 0.1 % Sodium Level 140 mmol/L (136-145) Potassium Level 4.0 mmol/L (3.5-5.1) Chloride Level 106 mmol/L (98-107) Carbon Dioxide Level 21 mmol/L (20-31) Anion Gap 13 (5-15) Blood Urea Nitrogen 7 mg/dL (9-23) Creatinine 0.82 mg/dL (0.550-1.02) Glomerular Filtration Rate Calc 97 mL/min (>90) BUN/Creatinine Ratio 8.5 (10.0-20.0) Serum Glucose 92 mg/dL (74-106) Calcium Level 9.2 mg/dL (8.7-10.4) Total Bilirubin 0.9 mg/dL (0.2-1.0) Aspartate Amino Transferase (AST) 33 U/L (13-40) Alanine Aminotransferase (ALT) 49 U/L (7-40) Alkaline Phosphatase 67 U/L (46-116) Total Protein 6.3 g/dL (5.7-8.2) Albumin 3.8 g/dL (3.2-4.8) Urine Color Yellow (Yellow) Urine Clarity Turbid (Clear) Urine pH 7.5 (5.0-9.0) Urine Specific [place] 1.023 (1.001-1.035) Urine Protein 1+ (Negative) Urine Ketones Trace (Negative) Urine Blood 3+ /uL (Negative) Urine Nitrite Negative (Negative) Urine Bilirubin 1+ (Negative) Urine Urobilinogen 6 mg/dL (Negative) Urine Leukocyte Esterase 1+ /uL (Negative) Urine RBC 3 /hpf (0 - 4) Urine Microscopic WBC 7 /HPF (0-5) Urine Squamous Epithelial Cells Many /hpf (<5) Urine Amorphous Crystals Few /hpf (None Seen) Urine Bacteria Few /hpf (None Seen) Urine Hyaline Casts Few /lpf (0 - 2) Urine Mucus Few (None Seen) Urine Glucose Normal mg/dL (Normal) Urine Test Negative (Negative) Prothrombin Time 10.8 sec (9.3-11.8) Prothrombin Time INR 1.02 (0.9-1.15) Activated Partial Thromboplast Time 28.4 SEC (24.5-34.5) Lipase 49 U/L (12-53) Other Laboratory Tests 04/15/25 05:22 Brief Hx & Hospital Course: see dictated note Condition at Discharge: Good Final Diagnosis/Problems List GALLSTONES Discharge Disposition: Home Discharge Instruct/Medications Diet: Regular Activity: No Restrictions, As Tolerated Follow Up/Referral: fu with surgery / dr Daigle in 1 wk Medications: script to pharmacy Scheduled Ciclopirox (Ciclopirox Nail Lacquer), 1 APPLIC TOP HS, (Reported) Tirzepatide (Zepbound), 7.5 MG SC QWEEKLY, (Reported) Scheduled PRN Meclizine Hcl (Meclizine Hcl), 1 TAB PO for VERTIGO, (Reported) Discharge Statement: "Patient was advised to return to the ER or call 911 if any headaches, dizziness, shortness of breath, chest pain, abdominal pain, bleeding, fevers, or worsening of medical condition. Patient was counseled about treatment plan, medications, possible side effects, patientverbalized understanding. All questions were answered to the best of my ability. This discharge took greater then 30 minutes in planning, reviewing documentation, counseling the patient, and discussing with other team members." ASSESSMENT ASSESSMENT Assessment GALLSTONES Date of Service: Apr 15, 2025 Billing Provider: JIM VALIENTE MD Common Visit Codes: [id number] DISCH DAY >30min JIM VALIENTE MD Apr 15, 2025 13:27
[2025-04-15] MEDS ORDERED: DOCU-94 PO (13:29)
[2025-04-15] MEDS ORDERED: TRAM-626 PO (13:29)
[2025-04-15] MEDS ORDERED: CEPH500T PO (13:29)
--- NOTE | 2025-04-15 13:37 | DVHDS ---
DATE OF DISCHARGE: 04/15/2025 HISTORY OF PRESENT ILLNESS: The patient is a 34-year-old lady who was admitted with a history of increasing abdominal pain radiating to the back. HOSPITAL COURSE: The patient had a gallbladder ultrasound that showed evidence of cholelithiasis with positive Daniel's sign. The patient was seen in Surgery consult by Dr. Daigle and underwent laparoscopic cholecystectomy on 04/14/2025. The patient has done well postoperatively and will now be discharged home, to be on tramadol p.r.n. for pain, Keflex 500 mg t.i.d. for 7 days and Colace p.r.n. for constipation. She will follow up with Dr. Daigle in 1 week. FINAL DIAGNOSES: Therefore, * Acute cholecystitis with cholelithiasis status post laparoscopic cholecystectomy. * Transaminitis. * UTI. * Obesity. Time spent in discharge planning and review of plan with the patient and nursing was 38 minutes. MD BRAXTON Hancock/MARIE TID: [id number] RECEIPT: [id number]
== END 2025-04-15 16:00 | disposition home or self-care (01) | DRG 263 ==
LOC: ER 19:05 → OVERFLOW 23:12 → EAST 04-13 21:16
PROVIDERS: ADMIT Internal Medicine; ATTEND Internal Medicine
PROC: 0FT44ZZ Resection of Gallbladder, Percutaneous Endoscopic Approach (ICD-10-PCS; principal; 2025-04-14 10:24)
DX: K80.00 Calculus of gallbladder with acute cholecystitis without obstruction (principal); E66.9 Obesity, unspecified; N39.0 Urinary tract infection, site not specified; R74.01 Elevation of levels of liver transaminase levels; K66.0 Peritoneal adhesions (postprocedural) (postinfection); K59.00 Constipation, unspecified; Z79.1 Long term (current) use of non-steroidal anti-inflammatories (NSAID); Z79.2 Long term (current) use of antibiotics; Z98.891 History of uterine scar from previous surgery; Z79.899 Other long term (current) drug therapy; Z68.33 Body mass index [BMI] 33.0-33.9, adult
CPT/HCPCS: 36415; 71045; 76705; 80053; 81001; 81025; 83690; 85025; 85610; 85730; 86850; 86900; 86901; 96365; 96372; G0378; J0131; J0330; J1100; J1885; J2405; J2470; J2543; J2704; J3490; Q0162